=== PATIENT | female | born 1935 | race African-American/Black ===

== ENCOUNTER 2020-03-31 18:13 | Inpatient (IN) | payer MEDICARE, MEDICAID ==
[~2020-03-31] VITALS: Ht 154.9 cm; Wt 59.4 kg
[2020-03-31] MEDS: SODIUM CHLORIDE 0.9% 1,000 ML IV SCH (02:00)
[~2020-03-31 18:13] MED LIST: ASPI-1158 PO; CYPR4SYR PO; DULO60CA64 PO; IBUP-2030 PO; LIP40 PO; MEMA10TA55 PO; METF-414 PO; METO25TA6 PO; OMEP40CA12 PO; POTASSIUM PO; SPIR25TA PO
[2020-03-31] MEDS ORDERED: SODIUM CHLORIDE 0.9% 1,000 ML IV ONE (18:33)
[2020-03-31 19:13] LABS: HEMATOCRIT. 35.6 % (36.0-48.0); HEMOGLOBIN. 11.7 g/dL (12.0-16.0); MEAN CORPUSCULAR HEMOGLOBIN 27.2 pg (28.0-32.0); MEAN CORPUSCULAR VOLUME 82.7 fL (81.0-99.0); MEAN PLATELET VOLUME 8.5 fl (7.4-10.4); PLATELET 214 x1000/uL (130-400); RED BLOOD CELL COUNT 4.31 mill/uL (4.2-5.4)
[2020-03-31 19:18] LABS: CHLORIDE 105 mEq/L (98-107)
[2020-03-31 19:25] LABS: PARTIAL THROMBOPLASTIN TIME 31.3 sec (23.4-31.0); PROTHROMBIN TIME 10.5 sec (9.6-11.0)
[2020-03-31] MEDS ORDERED: SODIUM POLYSTYRENE SULFONATE 15 G/60 ML BOT PO ONE (19:45)
[2020-03-31] MEDS ORDERED: ALBUTEROL (0.083%) 2.5MG/3ML NEB HHN ONE (19:45)
[2020-03-31] MEDS ORDERED: SODIUM BICARBONATE 8.4% 1 MEQ/ML 50ML SYR IV ONE (19:45)
[2020-03-31] MEDS ORDERED: DEXTROSE 50% WATER 50ML SYRINGE IV ONE (19:45)
[2020-03-31] MEDS ORDERED: ASPIRIN 81MG TABLET PO ONE (19:45)
[2020-03-31] MEDS ORDERED: INSULIN REGULAR (HUMULIN R) 300UNITS/3ML IV ONE (19:45)
[2020-03-31] MEDS ORDERED: ALBUTEROL (0.5%) 2.5MG/0.5ML NEB HHN ONE (19:54)
[2020-03-31 20:13] LABS: PLATELET ESTIMATE NORMAL
[2020-03-31] MEDS ORDERED: DOCUSATE SODIUM 100MG CAPSULE PO PRN (21:30)
[2020-03-31] MEDS ORDERED: CLONIDINE 0.1MG TABLET PO PRN (21:30)
[2020-03-31] MEDS ORDERED: ONDANSETRON HCL 4MG/2ML INJ IV PRN (21:30)
[2020-03-31] MEDS ORDERED: MAGNESIUM/ALUMINUM HYDROXIDE/SIMETHICONE 30ML UDC PO PRN (21:30)
[2020-03-31] MEDS ORDERED: IPRATROPIUM/ALBUTEROL 0.5-3(2.5)MG/3ML NEB NEB PRN (21:30)
[2020-03-31 22:30] VITALS: BP 133/73
[2020-04-01] VITALS (10 sets, daily range): BP systolic 108–149; BP diastolic 64–91
[2020-04-01] LABS: CREATINE KINASE MB FRACTION 5.7 ng/mL (0.5-3.6)
[2020-04-01] MEDS ORDERED: PNEUMOCOCCAL 23-VAL P-SAC VAC 0.5 ML IM ONE (01:00)
[2020-04-01] MEDS: BLOOD SUGAR DIAGNOSTIC STRIP TEST SCH ×4 (06:35→21:25)
[2020-04-01] MEDS: INSULIN LISPRO 100 UNITS/ML SUBCUT SCH ×4 (06:35→21:00)
[2020-04-01 07:31] LABS: HEMATOCRIT. 33.8 % (36.0-48.0); HEMOGLOBIN. 11.1 g/dL (12.0-16.0); MEAN PLATELET VOLUME 8.7 fl (7.4-10.4); PLATELET 200 x1000/uL (130-400); RED BLOOD CELL COUNT 4.12 mill/uL (4.2-5.4); RED CELL DISTRIBUTION WIDTH 24.3 % (11.6-14.6)
[2020-04-01 07:56] LABS: CREATINE KINASE MB FRACTION 5.8 ng/mL (0.5-3.6)
[2020-04-01] MEDS: ASPIRIN 81MG EC TABLET PO SCH (08:14)
[2020-04-01] MEDS: ENOXAPARIN 30MG/0.3ML SYR SUBCUT SCH (08:15)
[2020-04-01 14:20] LABS: CHLORIDE 108 mEq/L (98-107)
[2020-04-01 14:30] LABS: BG BASE EXCESS -9.1 mmol/L (-2.0-2.0); BG CARBOXYHEMOGLOBIN 0.3 % (0.5-1.5); BG DEOXYHEMOGLOBIN 2.4 % (0.0-5.0); BG FRACTION INSPIRED OXYGEN 21; BG HCO3 ACT 15.6 mmol/L (22.0-26.0); BG METHEMOGLOBIN 0.1 % (0.0-1.5); BG OXYGEN SATURATION 97.6 % (92.0-98.5); BG OXYHEMOGLOBIN 97.2 % (94.0-97.0); BG PCO2 30.5 mmHg (35.0-45.0); BG PH 7.328 (7.350-7.450); BG PO2 105.5 mmHg (75.0-100.0); BG SAMPLE SITE RIGHT BRACHIAL; BG TOTAL HEMOGLOBIN 12.3 g/dL (12.0-18.0); BG VENT MODE ROOM AIR
[2020-04-01] MEDS: SODIUM CHLORIDE 0.9% 1,000 ML IV SCH (14:41)
[2020-04-01 22:51] LABS: PLATELET ESTIMATE NORMAL
[2020-04-01 23:01] LABS: CLARITY URINE TURBID (CLEAR); COLOR URINE YELLOW (YELLOW); KETONES URINE NEGATIVE (NEGATIVE); LEUKOCYTE ESTERASE URINE 3+ (NEGATIVE); NITRITE URINE NEGATIVE (NEGATIVE); OCCULT BLOOD URINE 2+ (NEGATIVE); PH URINE 5.5 (4.5-8.0); PROTEIN URINE 2+ (NEGATIVE); SPECIFIC GRAVITY URINE 1.015 (1.005-1.030)
[2020-04-02] VITALS (11 sets, daily range): BP systolic 95–138; BP diastolic 53–90
[2020-04-02] MEDS: SODIUM CHLORIDE 0.9% 1,000 ML IV SCH (05:43)
[2020-04-02] MEDS: BLOOD SUGAR DIAGNOSTIC STRIP TEST SCH ×4 (06:50→21:00)
[2020-04-02 07:08] LABS: PHOSPHORUS 3.2 mg/dL (2.5-4.9)
[2020-04-02] MEDS: INSULIN LISPRO 100 UNITS/ML SUBCUT SCH ×4 (07:20→21:00)
[2020-04-02 07:54] LABS: HEMATOCRIT. 36.7 % (36.0-48.0); HEMOGLOBIN. 11.9 g/dL (12.0-16.0); MEAN CORPUSCULAR HEMOGLOBIN 26.9 pg (28.0-32.0); MEAN CORPUSCULAR VOLUME 82.7 fL (81.0-99.0); MEAN PLATELET VOLUME 9.1 fl (7.4-10.4); PLATELET 181 x1000/uL (130-400); RED BLOOD CELL COUNT 4.44 mill/uL (4.2-5.4); RED CELL DISTRIBUTION WIDTH 24.7 % (11.6-14.6)
[2020-04-02] MEDS: ASPIRIN 81MG EC TABLET PO SCH (08:24)
[2020-04-02] MEDS: ENOXAPARIN 30MG/0.3ML SYR SUBCUT SCH (08:24)
[2020-04-02] MEDS: DEXT 5%/0.9% NACL 1,000 ML IV SCH (09:33)
[2020-04-02] MEDS: CITRIC ACID/SODIUM CITRATE SOLN 15ML UDC PO SCH ×3 (10:15→16:57)
[2020-04-02] MEDS: CEFTRIAXONE 1,000 MG in DEXTROSE 5% WATER 50 ML IV SCH (11:11)
[2020-04-02 14:52] LABS: PLATELET ESTIMATE NORMAL
[2020-04-03] VITALS (12 sets, daily range): BP systolic 113–161; BP diastolic 75–95
[2020-04-03] MEDS: DEXT 5%/0.9% NACL 1,000 ML IV SCH ×2 (05:31→23:59)
[2020-04-03] MEDS: BLOOD SUGAR DIAGNOSTIC STRIP TEST SCH ×4 (06:50→20:19)
[2020-04-03 06:52] LABS: HEMATOCRIT. 31.5 % (36.0-48.0); HEMOGLOBIN. 10.3 g/dL (12.0-16.0); MEAN CORPUSCULAR HEMOGLOBIN 26.7 pg (28.0-32.0); MEAN CORPUSCULAR VOLUME 81.2 fL (81.0-99.0); MEAN PLATELET VOLUME 9.1 fl (7.4-10.4); PLATELET 188 x1000/uL (130-400); RED BLOOD CELL COUNT 3.88 mill/uL (4.2-5.4); RED CELL DISTRIBUTION WIDTH 24.8 % (11.6-14.6)
[2020-04-03] MEDS: INSULIN LISPRO 100 UNITS/ML SUBCUT SCH ×4 (06:56→20:19)
[2020-04-03 07:14] LABS: PHOSPHORUS 2.7 mg/dL (2.5-4.9)
[2020-04-03] MEDS: ASPIRIN 81MG EC TABLET PO SCH (08:57)
[2020-04-03] MEDS: CITRIC ACID/SODIUM CITRATE SOLN 15ML UDC PO SCH ×3 (08:58→17:14)
[2020-04-03] MEDS: CEFTRIAXONE 1,000 MG in DEXTROSE 5% WATER 50 ML IV SCH (08:58)
[2020-04-03] MEDS: ENOXAPARIN 30MG/0.3ML SYR SUBCUT SCH (08:58)
[2020-04-03] MEDS ORDERED: KETOROLAC 15MG/ML VIAL IV PRN (10:30)
[2020-04-03] MEDS ORDERED: MAGNESIUM 1 G PREMIX 100 ML IV NR (11:00)
[2020-04-03 13:40] LABS: PLATELET ESTIMATE NORMAL
[2020-04-03] MEDS: ACETAMINOPHEN 325MG TABLET PO PRN (17:14)
[2020-04-03] MEDS: DOXYCYCLINE 100 MG in DEXT 5% WATER 100 ML IV SCH (23:51)
[2020-04-04] VITALS (10 sets, daily range): BP systolic 126–155; BP diastolic 75–96
[2020-04-04] MEDS: BLOOD SUGAR DIAGNOSTIC STRIP TEST SCH ×4 (06:21→20:30)
[2020-04-04] MEDS: DEXTROSE 50% WATER 50ML SYRINGE IV PRN ×2 (06:21→12:12)
[2020-04-04 07:12] LABS: HEMATOCRIT. 31.3 % (36.0-48.0); HEMOGLOBIN. 10.4 g/dL (12.0-16.0); MEAN CORPUSCULAR VOLUME 81.5 fL (81.0-99.0); MEAN PLATELET VOLUME 9.5 fl (7.4-10.4); PLATELET 171 x1000/uL (130-400); RED BLOOD CELL COUNT 3.84 mill/uL (4.2-5.4); RED CELL DISTRIBUTION WIDTH 24.7 % (11.6-14.6)
[2020-04-04] MEDS: INSULIN LISPRO 100 UNITS/ML SUBCUT SCH ×4 (07:20→20:31)
[2020-04-04 07:35] LABS: CHLORIDE 107 mEq/L (98-107)
[2020-04-04] MEDS: CEFTRIAXONE 1,000 MG in DEXTROSE 5% WATER 50 ML IV SCH (09:32)
[2020-04-04] MEDS: ENOXAPARIN 30MG/0.3ML SYR SUBCUT SCH (09:32)
[2020-04-04] MEDS: ASPIRIN 81MG EC TABLET PO SCH (09:32)
[2020-04-04] MEDS: DOXYCYCLINE 100 MG in DEXT 5% WATER 100 ML IV SCH (11:14)
[2020-04-04 14:17] LABS: PLATELET ESTIMATE NORMAL
[2020-04-04] MEDS: ACETAMINOPHEN 325MG TABLET PO PRN (20:45)
[2020-04-05] VITALS (12 sets, daily range): BP systolic 108–150; BP diastolic 55–95
[2020-04-05] MEDS: DOXYCYCLINE 100 MG in DEXT 5% WATER 100 ML IV SCH ×3 (00:07→23:15)
[2020-04-05] MEDS: BLOOD SUGAR DIAGNOSTIC STRIP TEST SCH ×4 (05:55→20:46)
[2020-04-05 06:27] LABS: HEMATOCRIT. 31.3 % (36.0-48.0); HEMOGLOBIN. 10.4 g/dL (12.0-16.0); MEAN CORPUSCULAR HEMOGLOBIN 26.8 pg (28.0-32.0); MEAN CORPUSCULAR VOLUME 80.9 fL (81.0-99.0); MEAN PLATELET VOLUME 9.4 fl (7.4-10.4); PLATELET 182 x1000/uL (130-400); RED BLOOD CELL COUNT 3.88 mill/uL (4.2-5.4); RED CELL DISTRIBUTION WIDTH 25.5 % (11.6-14.6)
[2020-04-05 06:34] LABS: CHLORIDE 103 mEq/L (98-107)
[2020-04-05 06:41] LABS: PHOSPHORUS 2.4 mg/dL (2.5-4.9)
[2020-04-05] MEDS: INSULIN LISPRO 100 UNITS/ML SUBCUT SCH ×4 (07:05→20:46)
[2020-04-05] MEDS: ASPIRIN 81MG EC TABLET PO SCH (09:06)
[2020-04-05] MEDS: CEFTRIAXONE 1,000 MG in DEXTROSE 5% WATER 50 ML IV SCH (09:06)
[2020-04-05] MEDS: POTASSIUM-SODIUM PHOSPHATE POWDER PACKET PO SCH ×2 (09:06→17:13)
[2020-04-05] MEDS: MAGNESIUM OXIDE 400MG TABLET PO SCH ×2 (09:07→20:46)
[2020-04-05] MEDS: ENOXAPARIN 30MG/0.3ML SYR SUBCUT SCH (09:07)
[2020-04-05 10:28] LABS: PLATELET ESTIMATE NORMAL
[2020-04-05] MEDS: DEXTROSE 50% WATER 50ML SYRINGE IV PRN (17:13)
[2020-04-06] VITALS (9 sets, daily range): BP systolic 107–145; BP diastolic 37–103
[2020-04-06 06:33] LABS: HEMOGLOBIN. 9.4 g/dL (12.0-16.0); MEAN CORPUSCULAR HEMOGLOBIN 27.1 pg (28.0-32.0); MEAN PLATELET VOLUME 9.2 fl (7.4-10.4); PLATELET 168 x1000/uL (130-400); RED BLOOD CELL COUNT 3.45 mill/uL (4.2-5.4); RED CELL DISTRIBUTION WIDTH 25.2 % (11.6-14.6)
[2020-04-06] MEDS: BLOOD SUGAR DIAGNOSTIC STRIP TEST SCH ×2 (06:33→12:01)
[2020-04-06 07:07] LABS: CHLORIDE 105 mEq/L (98-107)
[2020-04-06 07:12] LABS: PHOSPHORUS 2.9 mg/dL (2.5-4.9)
[2020-04-06] MEDS: INSULIN LISPRO 100 UNITS/ML SUBCUT SCH ×2 (07:20→12:03)
[2020-04-06] MEDS ORDERED: DOXY100C2 MT (08:03)
[2020-04-06] MEDS ORDERED: AMOX-424 MT (08:03)
[2020-04-06] MEDS ORDERED: MULTIVITAMINS,THER W-MINERALS TABLET PO SCH (09:00)
[2020-04-06] MEDS: CEFTRIAXONE 1,000 MG in DEXTROSE 5% WATER 50 ML IV SCH (09:37)
[2020-04-06] MEDS: POTASSIUM-SODIUM PHOSPHATE POWDER PACKET PO SCH (09:37)
[2020-04-06] MEDS: ASPIRIN 81MG EC TABLET PO SCH (09:38)
[2020-04-06] MEDS: MAGNESIUM OXIDE 400MG TABLET PO SCH (09:38)
[2020-04-06] MEDS: ENOXAPARIN 30MG/0.3ML SYR SUBCUT SCH (09:39)
[2020-04-06] MEDS: DOXYCYCLINE 100 MG in DEXT 5% WATER 100 ML IV SCH (11:29)
[2020-04-06 23:00] LABS: PLATELET ESTIMATE NORMAL
== END 2020-04-06 16:05 | disposition home health service (06) | DRG 539 ==
LOC: ER 18:13 → 3WST 20:50 → ENRESERV 21:15
PROVIDERS: ADMIT Internal Medicine; ATTEND Internal Medicine
PROC: 02HV33Z Insertion of Infusion Device into Superior Vena Cava, Percutaneous Approach (ICD-10-PCS; principal; 2020-04-04)
PROC: B518ZZA Fluoroscopy of Superior Vena Cava, Guidance (ICD-10-PCS; 2020-04-04)
PROC: B548ZZA Ultrasonography of Superior Vena Cava, Guidance (ICD-10-PCS; 2020-04-04)
DX: M86.9 Osteomyelitis, unspecified (principal); I21.A1 Myocardial infarction type 2; N17.0 Acute kidney failure with tubular necrosis; I50.32 Chronic diastolic (congestive) heart failure; E44.0 Moderate protein-calorie malnutrition; E87.2 Acidosis; I47.1 Supraventricular tachycardia; N39.0 Urinary tract infection, site not specified; G90.8 Other disorders of autonomic nervous system; E78.5 Hyperlipidemia, unspecified; E87.5 Hyperkalemia; F03.90 Unspecified dementia, unspecified severity, without behavioral disturbance, psychotic disturbance, mood disturbance, and anxiety; I44.7 Left bundle-branch block, unspecified; I95.9 Hypotension, unspecified; E11.649 Type 2 diabetes mellitus with hypoglycemia without coma; E83.42 Hypomagnesemia; I11.0 Hypertensive heart disease with heart failure; E11.69 Type 2 diabetes mellitus with other specified complication; E86.1 Hypovolemia; N28.1 Cyst of kidney, acquired; B96.20 Unspecified Escherichia coli [E. coli] as the cause of diseases classified elsewhere; D64.9 Anemia, unspecified; Z79.82 Long term (current) use of aspirin; Z79.84 Long term (current) use of oral hypoglycemic drugs; Z79.899 Other long term (current) drug therapy; Z68.24 Body mass index [BMI] 24.0-24.9, adult
CPT/HCPCS: 36415; 36573; 36600; 71045; 73130; 76770; 80048; 80053; 81003; 82375; 82533; 82550; 82553; 82570; 82805; 82947; 82962; 83036; 83735; 83880; 84100; 84156; 84443; 84484; 85025; 85651; 86140; 87077; 87186; 92610; 93005; 94640; 96374; 99291; C1725; J0696; J1650; J1815; J1885; J3475; J3490; J7030; J7042; J7060